=== PATIENT | female | born 1990 | race American Indian/Alaskan Native ===

== ENCOUNTER 2021-10-21 12:48 | Emergency (ER) | payer MEDICAID ==
[~2021-10-21] VITALS: Ht 154.9 cm; Wt 73.9 kg
== END 2021-10-21 13:10 | disposition home or self-care (01) ==
LOC: ER 12:53
DX: R09.82 Postnasal drip (principal); J06.9 Acute upper respiratory infection, unspecified; H61.22 Impacted cerumen, left ear
CPT/HCPCS: 99282